=== PATIENT | male | born 1985 | race Caucasian/White ===

== ENCOUNTER 2023-04-30 10:16 | Emergency (ER) | payer OTHER ==
[~2023-04-30] VITALS: Ht 177.8 cm; Wt 95.0 kg
[2023-04-30 10:25] VITALS: BP 142/83
[2023-04-30 11:15] LABS: BASOPHILS ABSOLUTE AUTO 0.11 K/mm3 (0.00-0.23); BASOPHILS PERCENT AUTO 1 % (0-2); EOSINOPHILS ABSOLUTE AUTO 0.42 K/mm3 (0.00-0.68); EOSINOPHILS PERCENT AUTO 3 % (0-6); Hematocrit 42.1 % (37.0-53.0); Hemoglobin 14.4 g/dL (13.5-17.5); IMMATURE GRAN ABSOLUTE AUTO 0.07 K/mm3 (0.00-0.10); IMMATURE GRAN PERCENT AUTO 0 % (0-1); LYMPHOCYTES ABSOLUTE AUTO 2.97 K/mm3 (0.84-5.20); LYMPHOCYTES PERCENT AUTO 18 % (21-46); MONOCYTES ABSOLUTE AUTO 1.24 K/mm3 (0.16-1.47); MONOCYTES PERCENT AUTO 8 % (4-13); Mean Corpuscular HGB 30.4 pg (26.0-34.0); Mean Corpuscular HGB Conc 34.2 g/dL (31.5-36.5); Mean Corpuscular Volume 89 fL (80-100); Mean Platelet Volume 9.3 fL (9.1-12.4); NEUTROPHILS PERCENT AUTO 71 % (41-73); Platelet Count 395 K/mm3 (150-400); RDW Coefficient Variation 13.8 % (11.7-14.2); RDW Standard Deviation 44.8 fL (35.1-46.3); Red Blood Cell Count 4.74 M/mm3 (4.30-5.90); White Blood Cell Count 16.31 K/mm3 (4.00-11.30)
[2023-04-30 11:38] LABS: Albumin, Blood 3.6 g/dL (3.4-5.0); Albumin/Globulin Ratio 0.8 (0.8-1.8); Bilirubin, Total 0.2 mg/dL (0.1-1.0); Bun/Creatinine Ratio 11.9 (12.0-20.0); Calcium, Blood 8.5 mg/dL (8.5-10.1); Creatinine, Blood 0.76 mg/dL (0.60-1.20); Globulin, Blood 4.3 g/dL (2.2-4.0); Total Protein, Blood 7.9 g/dL (6.4-8.2)
[2023-04-30] MEDS ORDERED: Percocet 5-3251 EACH PO ×2 (14:24→15:01)
[2023-05-01] MEDS ORDERED: Vancomycin1 GM/2501 IV (10:46)
[2023-05-01] MEDS ORDERED: ONDA4 PO (20:22)
== END 2023-04-30 15:44 | disposition home or self-care (01) ==
LOC: ER 10:16
PROVIDERS: Student in an Organized Health Care Education/Training Program
DX: Z76.89 Persons encountering health services in other specified circumstances (principal); L03.211 Cellulitis of face
CPT/HCPCS: 70487; 80053; 85025; 96365; 96366; 96375; 96376; 99283-25; A9270; J1885; J3010; J3370; J7050; Q9967

== ENCOUNTER 2023-05-01 09:58 | Day surgery (SDC) | payer OTHER ==
[~2023-05-01 09:58] MED LIST: Percocet 5-3251 EACH PO
[2023-05-01 10:10] VITALS: BP 119/70
[2023-05-01] MEDS ORDERED: Vancomycin1 GM/2501 IV (10:46)
[2023-05-01] MEDS ORDERED: ONDA4 PO (20:22)
== END 2023-05-01 22:36 | disposition home or self-care (01) ==
LOC: ATC 09:58
DX: L03.211 Cellulitis of face (principal); Z79.899 Other long term (current) drug therapy
CPT/HCPCS: 96365; 96366; 96375; 99281-25; A9270; J1885; J3370; J7050

== ENCOUNTER 2023-05-01 19:20 | Emergency (ER) | payer OTHER ==
[~2023-05-01] VITALS: Ht 177.8 cm; Wt 90.7 kg
[~2023-05-01 19:20] MED LIST changes: +Vancomycin1 GM/2501 IV
[2023-05-01 19:31] VITALS: BP 138/92
[2023-05-01] MEDS ORDERED: ONDA4 PO (20:22)
== END 2023-05-01 22:59 | disposition home or self-care (01) ==
LOC: ER 19:20
DX: L03.211 Cellulitis of face (principal); Z79.899 Other long term (current) drug therapy
CPT/HCPCS: 96365; 96366; 96375; 99281-25; A9270; J1885; J3370; J7050

== ENCOUNTER 2023-05-02 07:02 | Day surgery (SDC) | payer OTHER ==
[~2023-05-02 07:02] MED LIST changes: +ONDA4 PO
[2023-05-02 07:35] VITALS: BP 114/77
[2023-05-02 22:00] VITALS: BP 114/75
--- NOTE | 2023-05-03 00:08 | NUR ---
PT IN FOR SCHEDULED IV VANCO. IF FLUSHED W/O DIFFICULTY. PT REP MILD ITCHING AROUND DRESSING. PT ROBERTA ABX WELL. ABX STOP TIME 05/02/23 6225. PT REP HE HAS SCHEDULED 0730 AND 1630 APPTS DAILY. CLARIFIED W/PHARMACIST THAT PT OK TO RECEIVE ABX AT 0730 EVEN THOUGH THIS DOSE LATE. PER PHARMACIST, OK FOR PT TO RETURN AT 0730. PT UPDATED AND AGREEABLE.
== END 2023-05-02 22:51 | disposition home or self-care (01) ==
LOC: ATC 07:02
DX: L03.211 Cellulitis of face (principal)
CPT/HCPCS: 96365; 96366; J3370; J7050

== ENCOUNTER 2023-05-03 00:29 | Day surgery (SDC) | payer OTHER ==
[2023-05-03 08:10] VITALS: BP 119/60
[2023-05-03 08:44] LABS: Creatinine, Blood 0.83 mg/dL (0.60-1.20); Vancomycin, Trough 19.1 ug/mL (5.0-10.0)
[2023-05-03 15:52] VITALS: BP 120/70
== END 2023-05-03 22:50 | disposition home or self-care (01) ==
LOC: ATC 00:29
PROVIDERS: Student in an Organized Health Care Education/Training Program
DX: L03.211 Cellulitis of face (principal)
CPT/HCPCS: 80202; 82565; 96365; 96366; J3370; J7050

== ENCOUNTER 2023-05-04 01:07 | Day surgery (SDC) | payer OTHER ==
[2023-05-04 08:00] VITALS: BP 115/69
[2023-05-04 16:12] VITALS: BP 118/76
[2023-05-05] MEDS ORDERED: Cleocin HCl150 MG PO (17:17)
== END 2023-05-04 18:02 | disposition home or self-care (01) ==
LOC: ATC 01:07
DX: L03.211 Cellulitis of face (principal)
CPT/HCPCS: 96365; 96366; J3370; J7050

== ENCOUNTER 2023-05-05 04:27 | Day surgery (SDC) | payer OTHER ==
[2023-05-05 07:45] VITALS: BP 126/70
--- NOTE | 2023-05-05 16:51 | NUR ---
PT'S CALLED THE [facility] AND STATED THAT PT IS IN THE ER WITH A NEW PROBLEM. SHE STATES THAT ER WILL GIVE HIM HIS LAST DOSE OF IV VANCO THAT IS SCHEDULED FOR THIS EVENING. HE WILL NOT BE COMING TO [facility] TONIGHT.
[2023-05-05] MEDS ORDERED: Cleocin HCl150 MG PO (17:17)
== END 2023-05-05 09:40 | disposition home or self-care (01) ==
LOC: ATC 04:27
DX: L03.211 Cellulitis of face (principal); R22.0 Localized swelling, mass and lump, head
CPT/HCPCS: 36415; 80053; 83605; 84145; 85025; 86140; 87040; 87070; 87075; 87077; 87147; 87186; 87205; 96365; 96366; 99283-25; J3370; J7050

== ENCOUNTER 2025-03-30 09:31 | Emergency (ER) | payer OTHER ==
[~2025-03-30] VITALS: Ht 177.8 cm; Wt 104.3 kg
[~2025-03-30 09:31] MED LIST changes: +Cleocin HCl150 MG PO
[2025-03-30 10:04] VITALS: BP 167/104
[2025-03-30] MEDS ORDERED: Ketorolac Tromethamine 15mg Vial IV ONE (10:05)
[2025-03-30] MEDS ORDERED: Ketorolac Tromethamine 15mg Vial IM ONE (10:40)
[2025-03-30] MEDS ORDERED: TIZA4 PO (10:54)
[2025-03-30] MEDS ORDERED: LIDO700A20 TOP (10:54)
== END 2025-03-30 11:13 | disposition home or self-care (01) ==
LOC: ER 09:31
DX: S40.011A Contusion of right shoulder, initial encounter (principal); W18.30XA Fall on same level, unspecified, initial encounter; Z79.899 Other long term (current) drug therapy
CPT/HCPCS: 73030; J1885

== ENCOUNTER 2025-05-13 02:09 | Emergency (ER) | payer OTHER ==
[~2025-05-13] VITALS: Ht 177.8 cm; Wt 113.4 kg
[~2025-05-13 02:09] MED LIST changes: +LIDO700A20 TOP; +TIZA4 PO
[2025-05-13 03:12] LABS: Influenza A, PCR NEGATIVE (NEGATIVE); Influenza B, PCR NEGATIVE (NEGATIVE); Resp Syncytial Virus, PCR NEGATIVE (NEGATIVE); SARS-Cov-2 (COVID-19) PCR, MMC NEGATIVE (NEGATIVE)
[2025-05-13] MEDS ORDERED: Albuterol 2.5 MG/3 ML VIAL INH SCH (03:20)
[2025-05-13 05:01] VITALS: BP 130/79
[2025-05-13] MEDS ORDERED: RX Prepack Albuterol 1 PREPACK/6.7 GM INH UD ONE (05:05)
[2025-05-13] MEDS ORDERED: PRED20 PO (05:07)
== END 2025-05-13 05:14 | disposition home or self-care (01) ==
LOC: ER 02:09
PROVIDERS: Emergency Medicine
DX: J45.901 Unspecified asthma with (acute) exacerbation (principal); F17.200 Nicotine dependence, unspecified, uncomplicated
CPT/HCPCS: 87637; 96374; 99283-25; A9270; J2919